=== PATIENT | male | born 1980 | race Caucasian/White ===

== ENCOUNTER → 2016-10-09 | Outpatient (CLI) | payer OTHER ==
[~2016-10-09] MED LIST: 'PARAFON FORTE500 M1 PO; ALBUTEROL0.09 MG/A2 IH; BENADRYL25 M1 PO; BENADRYL25 MG PO; CELEXA20 MG PO; CLARITIN-D 10 M1 T21 PO; CYCLOBENZAPRINE10 MG PO; ELIMITE 5%60 GM PO; FLONASE 0.05% 121 EA NAS; HYCODAN 1.5 MG480 M1 PO; HYDROCODONE BIT1 T11 PO; IBU800 MG PO; MEDROL DOSEPAK4 MG PO; MOTRIN600 MG PO; MOTRIN800 MG PO; Motrin,Rufen800 MG PO; NAPROSYN500 MG PO; PERCOCET 325 MG1 TA2 PO; PHENERGAN W/ DE30 ML PO; PREDNICOT10 MG PO; PREDNISONE10 MG PO; ROBITUSSIN AC 10 MG/ PO; ROBITUSSIN AC 110 ML PO; SEROQUEL50 MG PO; THERAFLU1 PDS PO; TYLENOL WITH CO1 TA1 PO; VICODIN 5/500 505 MG PO; VITAMIN D50000 I3 PO; XANAX0.25 MG PO; ZITHROMAX Z PA250 MG PO; ZITHROMAX250 MG PO; ZOVIRAX800 MG PO; ZYRTEC10 MG PO
== END ==
LOC: RAD 14:36
DX: R19.7 Diarrhea, unspecified (principal); R10.9 Unspecified abdominal pain; K59.00 Constipation, unspecified; R63.4 Abnormal weight loss

== ENCOUNTER 2017-05-01 07:10 | Emergency (ER) | payer OTHER ==
[~2017-05-01] VITALS: Ht 172.7 cm; Wt 94.8 kg
[~2017-05-01 07:10] MED LIST changes: +AMOXICILLIN500 M2 PO; +EFFEXOR XR75 M1 PO
[2017-05-01] MEDS ORDERED: Tobrex Ophth S2.5 ML OPH (07:35)
== END 2017-05-01 08:12 | disposition home or self-care (01) ==
LOC: ED 07:10
DX: H10.33 Unspecified acute conjunctivitis, bilateral (principal); Z91.010 Allergy to peanuts; Z91.013 Allergy to seafood

== ENCOUNTER 2017-05-03 22:17 | Emergency (ER) | payer OTHER ==
[~2017-05-03] VITALS: Ht 172.7 cm; Wt 94.8 kg
[~2017-05-03 22:17] MED LIST changes: +Tobrex Ophth S2.5 ML OPH
[2017-05-03] MEDS ORDERED: AUGMENTIN 875875 MG PO (23:42)
== END 2017-05-04 00:04 | disposition home or self-care (01) ==
LOC: ED 22:17
DX: J02.0 Streptococcal pharyngitis (principal); R19.7 Diarrhea, unspecified; R11.10 Vomiting, unspecified; Z91.013 Allergy to seafood; Z91.010 Allergy to peanuts; Z79.899 Other long term (current) drug therapy

== ENCOUNTER → 2017-05-08 | Outpatient (CLI) | payer OTHER ==
[~2017-05-08] MED LIST changes: +AUGMENTIN 875875 MG PO
== END ==
LOC: RAD 15:42
DX: S60.031A Contusion of right middle finger without damage to nail, initial encounter (principal); S60.041A Contusion of right ring finger without damage to nail, initial encounter; X58.XXXA Exposure to other specified factors, initial encounter; Y93.89 Activity, other specified; Y92.89 Other specified places as the place of occurrence of the external cause; Y99.8 Other external cause status

== ENCOUNTER 2017-08-06 21:01 | Emergency (ER) | payer OTHER ==
[~2017-08-06] VITALS: Ht 172.7 cm; Wt 94.8 kg
== END 2017-08-06 23:48 | disposition home or self-care (01) ==
LOC: ED 21:01
DX: T78.40XA Allergy, unspecified, initial encounter (principal); G89.29 Other chronic pain; F32.9 Major depressive disorder, single episode, unspecified; Z91.010 Allergy to peanuts; Z91.013 Allergy to seafood; Z79.899 Other long term (current) drug therapy; X58.XXXA Exposure to other specified factors, initial encounter

== ENCOUNTER → 2017-10-29 | Outpatient (CLI) | payer OTHER | END | disposition home or self-care (01) | LOC: CARD 07:30 | DX: R60.9 Edema, unspecified (principal) ==

== ENCOUNTER → 2018-03-19 | Outpatient (CLI) | payer OTHER | END | disposition home or self-care (01) | LOC: CT 13:00 | DX: J34.2 Deviated nasal septum (principal); J32.2 Chronic ethmoidal sinusitis ==

== ENCOUNTER → 2019-01-08 | Outpatient (CLI) | payer OTHER ==
[~2019-01-08] MED LIST changes: +ABILIFY MAINTE400 MG IM; +ARIPIPRAZOLE10 MG PO; +PROPRANOLOL HCL20 MG PO
== END | disposition home or self-care (01) ==
LOC: LAB 14:30
DX: F25.9 Schizoaffective disorder, unspecified (principal)

== ENCOUNTER 2019-02-12 21:43 | Emergency (ER) | payer OTHER ==
[~2019-02-12] VITALS: Ht 170.1 cm; Wt 94.3 kg
[2019-02-13] MEDS ORDERED: Motrin,Rufen800 MG PO (00:42)
== END 2019-02-13 01:13 | disposition home or self-care (01) ==
LOC: ED 21:43
DX: M25.561 Pain in right knee (principal); Z91.048 Other nonmedicinal substance allergy status; Z91.010 Allergy to peanuts; Z91.013 Allergy to seafood; Z79.899 Other long term (current) drug therapy; X50.1XXA Overexertion from prolonged static or awkward postures, initial encounter; Y93.01 Activity, walking, marching and hiking; Y92.89 Other specified places as the place of occurrence of the external cause; Y99.8 Other external cause status

== ENCOUNTER 2019-05-11 23:21 | Emergency (ER) | payer OTHER ==
[~2019-05-11] VITALS: Ht 170.1 cm; Wt 99.3 kg
[2019-05-12] MEDS ORDERED: ZOFRAN4 MG PO (00:28)
== END 2019-05-12 00:46 | disposition home or self-care (01) ==
LOC: ED 23:21
DX: B34.9 Viral infection, unspecified (principal); Z91.048 Other nonmedicinal substance allergy status; Z91.010 Allergy to peanuts; Z91.013 Allergy to seafood; Z79.899 Other long term (current) drug therapy

== ENCOUNTER → 2019-07-20 | Outpatient (CLI) | payer OTHER ==
[~2019-07-20] MED LIST changes: +ZOFRAN4 MG PO
== END | disposition home or self-care (01) ==
LOC: RAD 14:00
DX: R30.0 Dysuria (principal); R10.9 Unspecified abdominal pain

== ENCOUNTER 2019-09-12 03:51 | Emergency (ER) | payer OTHER ==
[~2019-09-12] VITALS: Ht 172.7 cm; Wt 104.3 kg
[2019-09-12] MEDS ORDERED: PREDNISONE20 M1 PO (05:25)
[2019-09-12] MEDS ORDERED: OMNICEF300 MG PO (05:25)
== END 2019-09-12 05:48 | disposition home or self-care (01) ==
LOC: ED 03:51
DX: J20.9 Acute bronchitis, unspecified (principal); G89.29 Other chronic pain; Z91.048 Other nonmedicinal substance allergy status; Z91.010 Allergy to peanuts; Z91.013 Allergy to seafood; Z79.899 Other long term (current) drug therapy

== ENCOUNTER 2019-10-04 19:09 | Emergency (ER) | payer OTHER ==
[~2019-10-04] VITALS: Ht 170.1 cm; Wt 101.2 kg
[~2019-10-04 19:09] MED LIST changes: +OMNICEF300 MG PO; +PREDNISONE20 M1 PO
[2019-10-04 19:53] LABS: BASO # 0.1 10*3/uL (0.0-0.1); BASO % 0.5 % (0.0-1.0); EOS # 0.3 10*3/uL (0.0-0.4); EOS % 3.1 % (1.0-4.0); HEMOGLOBIN 15.5 g/dl (14.0-18.0); LYMPH # 2.7 10*3/uL (1.3-4.4); LYMPH % 26.6 % (27.0-41.0); MEAN CELL VOLUME 89.7 fl (80.0-94.0); MEAN CORPUSCULAR HGB 29.6 pg (27.0-31.0); MEAN PLATELET VOLUME 10.7 fl (9.6-12.3); MONO # 0.9 10*3/uL (0.1-1.0); MONO % 9.4 % (3.0-9.0); NEUT % 60.1 % (47.0-73.0); PLATELET COUNT AUTOMATED 261 10*3/uL (130-400); RED BLOOD COUNT 5.24 10*6/uL (4.50-5.90); RED CELL DISTRI WIDTH 12.6 % (0-14.5)
[2019-10-04 20:08] LABS: ALBUMIN 3.5 gm/dl (3.1-4.5); ALKALINE PHOSPHATASE 81 U/L (45-117); BUN 11 mg/dl (7-24); CHLORIDE 107 mmol/L (98-107); CREATININE 1.18 mg/dL (0.70-1.30); LIPASE 87 U/L (73-393); POTASSIUM 4.1 mmol/L (3.5-5.1); SGOT/AST 20 IU/L (3-35); SGPT/ALT 40 U/L (12-78); SODIUM 141 mmol/L (136-145); TOTAL PROTEIN 7.5 gm/dL (6.4-8.2)
[2019-10-04] MEDS ORDERED: PROAIR HFA8.5 GM INH (21:28)
== END 2019-10-04 21:40 | disposition home or self-care (01) ==
LOC: ED 19:09
PROVIDERS: Physician Assistant
DX: B34.9 Viral infection, unspecified (principal); Z91.010 Allergy to peanuts; Z91.013 Allergy to seafood; Z79.899 Other long term (current) drug therapy

== ENCOUNTER 2020-02-03 22:35 | Emergency (ER) | payer MEDICARE, MEDICAID ==
[~2020-02-03] VITALS: Ht 172.7 cm; Wt 101.2 kg
[~2020-02-03 22:35] MED LIST changes: +PROAIR HFA8.5 GM INH
== END 2020-02-04 00:07 | disposition home or self-care (01) ==
LOC: ED 22:35
DX: L55.0 Sunburn of first degree (principal); Z91.010 Allergy to peanuts; Z91.013 Allergy to seafood; Z79.899 Other long term (current) drug therapy

== ENCOUNTER 2021-11-14 04:19 | Emergency (ER) | payer OTHER ==
[~2021-11-14] VITALS: Ht 172.7 cm; Wt 106.1 kg
[2021-11-14] MEDS ORDERED: ABILIFY MAINTE400 M1 IM (04:29)
[2021-11-14] MEDS ORDERED: PREDNISONE10 M1 PO (05:52)
== END 2021-11-14 06:04 | disposition home or self-care (01) ==
LOC: ED 04:19
DX: J06.9 Acute upper respiratory infection, unspecified (principal); Z91.010 Allergy to peanuts; Z91.013 Allergy to seafood; Z79.899 Other long term (current) drug therapy

== ENCOUNTER 2022-02-27 22:34 | Emergency (ER) | payer OTHER ==
[~2022-02-27] VITALS: Ht 172.7 cm; Wt 108.9 kg
[~2022-02-27 22:34] MED LIST changes: +ABILIFY MAINTE400 M1 IM; +PREDNISONE10 M1 PO
[2022-02-27 23:19] LABS: BASO % 0.4 % (0.0-1.0); EOS # 0.1 10*3/uL (0.0-0.4); EOS % 1.5 % (1.0-4.0); HEMATOCRIT 45.8 % (42.0-52.0); LYMPH # 0.4 10*3/uL (1.3-4.4); LYMPH % 4.7 % (27.0-41.0); MEAN CELL VOLUME 86.9 fl (80.0-94.0); MEAN CORPUSCULAR HGB CONC 33.4 g/dl (33.0-37.0); MEAN PLATELET VOLUME 11.2 fl (9.6-12.3); MONO # 0.7 10*3/uL (0.1-1.0); MONO % 8.2 % (3.0-9.0); NEUT # 7.2 10*3/uL (2.3-7.9); NEUT % 84.7 % (47.0-73.0); PLATELET COUNT AUTOMATED 172 10*3/uL (130-400); RED BLOOD COUNT 5.27 10*6/uL (4.50-5.90); WHITE BLOOD COUNT 8.4 10*3/uL (4.8-10.8)
[2022-02-27 23:34] LABS: ALKALINE PHOSPHATASE 72 U/L (45-117); BUN 11 mg/dl (7-24); CHLORIDE 103 mmol/L (98-107); CREATININE 1.28 mg/dL (0.70-1.30); POTASSIUM 3.6 mmol/L (3.5-5.1); SGOT/AST 19 IU/L (3-35); SGPT/ALT 38 U/L (12-78); SODIUM 137 mmol/L (136-145); TOTAL PROTEIN 7.6 gm/dL (6.4-8.2)
[2022-02-28] MEDS ORDERED: CEFDINIR300 MG PO (03:17)
== END 2022-02-28 03:22 | disposition home or self-care (01) ==
LOC: ED 22:34
PROVIDERS: Emergency Medicine
DX: R50.9 Fever, unspecified (principal); Z20.822 Contact with and (suspected) exposure to COVID-19; R05.9 Cough, unspecified; Z79.899 Other long term (current) drug therapy

== ENCOUNTER → 2022-07-05 | Outpatient (CLI) | payer OTHER ==
[~2022-07-05] MED LIST changes: +CEFDINIR300 MG PO
[2022-07-05 10:39] LABS: BASO # 0.1 10*3/uL (0.0-0.1); BASO % 0.6 % (0.0-1.0); EOS # 0.4 10*3/uL (0.0-0.4); EOS % 4.9 % (1.0-4.0); HEMATOCRIT 47.7 % (42.0-52.0); LYMPH # 2.5 10*3/uL (1.3-4.4); LYMPH % 31.2 % (27.0-41.0); MEAN CELL VOLUME 86.4 fl (80.0-94.0); MEAN CORPUSCULAR HGB 29.7 pg (27.0-31.0); MEAN CORPUSCULAR HGB CONC 34.4 g/dl (33.0-37.0); MEAN PLATELET VOLUME 10.1 fl (9.6-12.3); MONO # 0.6 10*3/uL (0.1-1.0); MONO % 7.4 % (3.0-9.0); NEUT # 4.5 10*3/uL (2.3-7.9); NEUT % 55.6 % (47.0-73.0); PLATELET COUNT AUTOMATED 189 10*3/uL (130-400); RED BLOOD COUNT 5.52 10*6/uL (4.50-5.90); RED CELL DISTRI WIDTH 12.9 % (0-14.5)
[2022-07-05 10:54] LABS: ALKALINE PHOSPHATASE 71 U/L (46-116); BUN 9 mg/dl (9-23); CHLORIDE 105 mmol/L (98-107); CHOLESTEROL 196 mg/dL (<200); CREATININE 1.08 mg/dL (0.70-1.30); LDL CHOLESTEROL 112 mg/dL (9-159); POTASSIUM 3.9 mmol/L (3.4-5.1); SGPT/ALT 52 U/L (10-49); SODIUM 139 mmol/L (136-145); TOTAL PROTEIN 7.2 gm/dL (6.0-8.0); TRIGLYCERIDES 152 mg/dl (<150)
== END | disposition home or self-care (01) ==
LOC: LAB 10:18
PROVIDERS: ATTEND Registered Nurse Psychiatric/Mental Health
DX: Z79.899 Other long term (current) drug therapy (principal)

== ENCOUNTER 2023-01-12 01:15 | Emergency (ER) | payer OTHER ==
[~2023-01-12] VITALS: Ht 170.1 cm; Wt 109.8 kg
== END 2023-01-12 03:00 | disposition home or self-care (01) ==
LOC: ED 01:15
DX: U07.1 COVID-19 (principal); F41.9 Anxiety disorder, unspecified; F31.9 Bipolar disorder, unspecified; Z88.8 Allergy status to other drugs, medicaments and biological substances; Z91.010 Allergy to peanuts; Z91.013 Allergy to seafood; Z98.890 Other specified postprocedural states

== ENCOUNTER 2023-03-29 15:14 | Emergency (ER) | payer OTHER ==
[~2023-03-29] VITALS: Ht 170.1 cm; Wt 107.0 kg
== END 2023-03-29 16:43 | disposition home or self-care (01) ==
LOC: ED 15:14
DX: S90.122A Contusion of left lesser toe(s) without damage to nail, initial encounter (principal); F41.9 Anxiety disorder, unspecified; F31.9 Bipolar disorder, unspecified; Z88.8 Allergy status to other drugs, medicaments and biological substances; Z91.010 Allergy to peanuts; Z91.013 Allergy to seafood; Z98.890 Other specified postprocedural states; W22.01XA Walked into wall, initial encounter; Y93.89 Activity, other specified; Y92.89 Other specified places as the place of occurrence of the external cause; Y99.8 Other external cause status

== ENCOUNTER 2024-04-09 13:47 | Emergency (ER) | payer MEDICARE, OTHER ==
[~2024-04-09] VITALS: Wt 106.6 kg
== END 2024-04-09 15:09 | disposition home or self-care (01) ==
LOC: ED 13:47
DX: R09.82 Postnasal drip (principal); Z20.822 Contact with and (suspected) exposure to COVID-19; F41.9 Anxiety disorder, unspecified; F31.9 Bipolar disorder, unspecified; R11.2 Nausea with vomiting, unspecified; Z88.8 Allergy status to other drugs, medicaments and biological substances; Z91.010 Allergy to peanuts; Z91.013 Allergy to seafood; Z98.890 Other specified postprocedural states